=== PATIENT | female | born 1985 | race Caucasian/White ===

== ENCOUNTER 2016-11-11 18:47 | Emergency (ER) | payer OTHER ==
[~2016-11-11] VITALS: Ht 177.8 cm; Wt 94.3 kg
[~2016-11-11 18:47] MED LIST: ATR25 PO; CETI10TA10 PO; CLX/20 PO; OMEP20CA9 PO; QUET1TAB34 PO; TGR100 PO
[2016-11-11 18:49] VITALS: TEMP 36.8; Ht 177.8 cm; Wt 94.3 kg
--- NOTE | 2016-11-11 20:16 | DIAGNOSTIC IMAGING REPORT ---
CHEST 2 VIEWS ROUTINE CLINICAL HISTORY: cough dyspnea COMPARISON STUDY: No previous studies for comparison. FINDINGS: The bones soft tissues and hemidiaphragms are normal. The cardiomediastinal silhouette is normal. The lungs are clear. The pulmonary vasculature is normal. IMPRESSION: Negative chest. Electronically signed by: Dann Siu M.D. 11/11/2016 8:14 PM Dictated Date/Time: 11/11/2016 8:14 PM
[2016-11-11] MEDS ORDERED: AZITHROMYCIN 250 MG TAB PO STA (20:23)
[2016-11-11] MEDS ORDERED: FLUC150T54 PO (20:28)
[2016-11-11] MEDS ORDERED: AZIT-57 PO (20:28)
[2016-11-11 20:33] VITALS: BP 126/70; PULSE 70; O2SAT 98
--- NOTE | 2016-11-11 22:22 | EMERGENCY ROOM VISIT NOTE ---
History Report prepared by Devon: Hakan Springer Under the Supervision of: Dr. Yan Scott D.O. First contact with patient: 18:52 Chief Complaint: ILLNESS Stated Complaint: CONGESTION,HEADACHE,CHILLS,COUGH,WHEEZING History of Present Illness The patient is a 31 year old female who presents to the Emergency Room with complaints of persistent illness beginning a month ago. Her symptoms include headaches, sinus congestion, cough, runny nose, SOB. Her cough produces a yellow sputum. She states that her cough began being productive about 3 weeks ago. The patient has not been seen by her PCP because she thought her symptoms would resolve. She is a smoker. Pt denies headache, change in vision, fevers, nausea, vomiting, diarrhea, pain with urination, and melena. She states that she sometimes has pain in her chest with coughing, otherwise she denies any chest pain. Her vaccinations are all up to date. Source of History: patient Onset: A month ago Quality: other (illness) Timing: other (persistent) Associated Symptoms: + SOB, + cough (produces yellow sputum), No abdominal pain, No chills, No diarrhea, No fevers, No nausea, No urinary symptoms, No vomiting Note: The patient also complains of sinus congestion, and a runny nose. Review of Systems See HPI for pertinent positives & negatives. A total of 10 systems reviewed and were otherwise negative. Past Medical & Surgical Medical Problems: (1) Bipolar disorder (2) Cervical High Risk Human Papillomavirus (Hpv) Dna Test Pos (3) Nicotine Dependence, Cigarettes, Uncomplicated (4) Radiculopathy, Lumbar Region Family History Cancer Diabetes mellitus Hypertension Social History Smoking Status: Current Every Day Smoker Alcohol Use: none Drug Use: none Marital Status: in relationship Housing Status: lives with significant other Occupation Status: employed Current/Historical Medications Scheduled Azithromycin (Azithromycin), 250 MG PO DAILY Carbamazepine (Carbamazepine), 100 MG PO BID Citalopram (Citalopram Hydrobromide), 20 MG PO DAILY Fluconazole (Diflucan), 150 MG PO once Hydroxyzine HCl (Hydroxyzine HCl), 25 MG PO HS Quetiapine Fumarate (Seroquel), 100 MG PO HS Scheduled PRN Cetirizine Hcl (Zyrtec), 10 MG PO DAILY PRN for Allergy Symptoms Omeprazole (Prilosec), 20 MG PO DAILY PRN for Acid Reflux Allergies Coded Allergies: No Known Allergies (Unverified , 01/11/16) Physical Exam Vital Signs Date Time Temp Pulse Resp B/P Pulse Ox O2 Delivery O2 Flow Rate FiO2 11/11/16 20:33 70 18 126/70 98 Room Air 11/11/16 18:49 36.8 78 18 134/87 98 Room Air Physical Exam GENERAL: Sitting up in bed, nontoxic, disheveled, in no acute distress. Dry non- productive cough noted. EYE EXAM: normal conjunctiva. EAR EXAM: TMs clear bilaterally HEAD: Tenderness over the maxillary sinus. No tenderness over the frontal sinus. OROPHARYNX: no exudate, no erythema, lips, buccal mucosa, and tongue normal and mucous membranes are moist NECK: supple, no nuchal rigidity, no adenopathy, non-tender LUNGS: Clear to auscultation. Normal chest wall mechanics HEART: no murmurs, S1 normal and S2 normal ABDOMEN: abdomen soft, non-tender, normo-active bowel sounds, no masses, no rebound or guarding. BACK: Back is symmetrical on inspection and there is no deformity, no midline tenderness, no CVA tenderness. SKIN: no rashes and no bruising UPPER EXTREMITIES: upper extremities are grossly normal. LOWER EXTREMITIES: No pitting edema. NEURO EXAM: Normal sensorium, cranial nerves II-XII grossly intact, normal speech, no gross weakness of arms, no gross weakness of legs. Medical Decision & Procedures ER Provider Diagnostic Interpretation: Radiology results as stated below per my review and the radiologist's interpretation: CHEST 2 VIEWS ROUTINE FINDINGS: The bones soft tissues and hemidiaphragms are normal. The cardiomediastinal silhouette is normal. The lungs are clear. The pulmonary vasculature is normal. IMPRESSION: Negative chest. Electronically signed by: Dann Siu M.D. Medications Administered Medications (Trade) Dose Ordered Sig/Elle Route Start Time Stop Time Status Last Admin Dose Admin Azithromycin (Zithromax Tab) 500 mg NOW STAT PO 11/11/16 20:23 11/11/16 20:24 DC 11/11/16 20:33 500 MG ECG Indication: SOB/dyspnea Rate (beats per minute): 70 Rhythm: sinus rhythm Findings: no acute ischemic change, no ectopy, other (normal axis) ED Course ED COURSE: Vital signs were reviewed and appeared normal The patients medical record was reviewed The above diagnostic studies were performed and reviewed. ED treatments and interventions as stated above. 1857: The patient was evaluated in room B2. A complete history and physical examination was performed. 2022: Ordered Zithromax Tab 500 mg PO. 2029: Upon reevaluation, the patient is resting comfortably. I discussed my findings with the patient and she understands and agrees with the treatment plan. Based on the patients age, coexisting illnesses, exam and lab findings the decision to treat as an outpatient was made. The patient remained stable while under my care. The patient appeared well at the time of discharge. Medical Decision Differential diagnoses includes but is not limited to pneumonia, bronchitis, COPD/Asthma exacerbation, pneumothorax, pulmonary embolism, congestive heart failure, acute coronary syndrome Patient is a 31-year-old female who presents the ER for yellow productive cough associated with initially a runny nose and now sinus congestion. Symptoms have been worsening over the past 3 weeks. She does have some chest pain with coughing. Vitals are unremarkable. EKG unremarkable. Based on her history and exam I do feel this consistent with bronchitis. Chest x-ray was obtained and was negative for any pneumonia. Patient was given a dose of azithromycin and discharged with antibiotics and Diflucan prophylactically for bronchitis. Discussed with Pt concerning signs and symptoms to watch out for. Pt was instructed to follow up with their PCP and discussed with the patient their option to return to the ED at anytime for persistent or worsening symptoms. The appropriate anticipatory guidance and out-patient management, including indications for return to the emergency department, were explained at length to the patient and understood. Impression Primary Impression: Bronchitis Scribe Attestation The scribe's documentation has been prepared under my direction and personally reviewed by me in its entirety. I confirm that the note above accurately reflects all work, treatment, procedures, and medical decision making performed by me. Departure Information Dispostion Home / Self-Care Prescriptions Fluconazole (DIFLUCAN) 150 Mg Tab 150 MG PO once for 1 Day, TAB Prov: Yan Scott, DO 11/11/16 Azithromycin (Azithromycin) 250 Mg Tab 250 MG PO DAILY for 4 Days Prov: Yan Scott, DO 11/11/16 Referrals Ivy Whaley D.O. (PCP) Forms HOME CARE DOCUMENTATION FORM, IMPORTANT VISIT INFORMATION, WORK / SCHOOL INSTRUCTIONS Patient Instructions ED Bronchitis Abx Tx, My [facility] Additional Instructions Please follow up with your primary care doctor with in the next 24 hours. Any worsening of your symptoms, please return to the ED immediately. This includes fevers greater than 100.4, passing out, new chest pain, worsening shortness of breath, or any other concerning signs or symptoms from your standpoint.
== END 2016-11-11 20:38 | disposition home or self-care (01) ==
LOC: C.EDB 18:47
DX: J40 Bronchitis, not specified as acute or chronic (principal); F31.9 Bipolar disorder, unspecified; M54.16 Radiculopathy, lumbar region; Z80.9 Family history of malignant neoplasm, unspecified; Z83.3 Family history of diabetes mellitus; Z82.49 Family history of ischemic heart disease and other diseases of the circulatory system; F17.210 Nicotine dependence, cigarettes, uncomplicated; Z79.899 Other long term (current) drug therapy